=== PATIENT | female | born 2000 | race Two or more races ===

== ENCOUNTER 2025-02-18 13:52 | Inpatient (IN) | payer OTHER ==
[~2025-02-18] VITALS: Ht 152.4 cm; Wt 2.3 kg
[2025-02-18] MEDS ORDERED: RINGERS SOLUTION,LACTATED 1,000 ML IV SCH ×2 (14:15→23:30)
[2025-02-18 14:20] VITALS: BP 106/66
[2025-02-18 14:38] LABS: BASO % 0.2 % (0.1-1.2); EOS # 0.08 (0.04-0.54); EOS % 0.8 % (0.7-7.0); LYMPH # 1.62 (1.18-3.74); LYMPH % 16.8 % (19.3-53.1); MEAN PLATELET VOLUME 11.80 fl (9.4-12.4); MONO # 0.53 (0.24-0.82); MONO % 5.5 % (4.7-12.5); NEUT # 7.36 (1.56-6.13); NEUT % 76.1 % (34.0-71.1); RED CELL DISTRIBUTION WIDTH 20.5 % (11.6-14.4)
[2025-02-18] MEDS ORDERED: IRON240 MG PO (14:39)
[2025-02-18] MEDS ORDERED: PRENATABS FA T1 EACH PO (14:40)
[2025-02-18 14:46] LABS: URINE APPEARANCE Cloudy; URINE BILIRRUBIN Negative (NEGATIVE); URINE BLOOD Negative; URINE COLOR Yellow; URINE GLUCOSE Negative (NEGATIVE); URINE KETONE Negative (NEGATIVE); URINE LEUKOCYTE Trace; URINE NITRATE Negative; URINE PROTEIN Trace (NEGATIVE); URINE UROBILINOGEN 0.2 E.U./dl
[2025-02-18 14:48] LABS: URINE BACTERIA 4321.0 uL (0.0-1933); URINE EPITHELIAL CELLS 181.1 uL (0.0-38.8); URINE RBC 5.4 uL (0.0-20.8); URINE WBC 70.2 uL (0.0-23.2)
[2025-02-18 15:11] LABS: INR < 0.93
[2025-02-18 15:15] LABS: URINE CAST 0.43 uL (0.0-1.40)
[2025-02-18 15:17] LABS: URINE MUCUS MODERATE
[2025-02-18 15:18] LABS: TYPE CELLS SQUAMOUS
[2025-02-18 15:21] VITALS: BP 117/78
[2025-02-18 15:47] LABS: ALT/SGPT 17.0 U/L (12-78); AST/SGOT 13.0 U/L (15-37); BILIRUBIN TOTAL 0.33 mg/dL (0.3-1.2); BUN CREA RATIO 11.0 (7.0-25.0); CREATININE SERUM 0.57 mg/dL (0.55-1.02); GFR 129.23; GLOBULINA 3.7 G/DL (2.4-3.5); GLUCOSE FASTING 70.0 mg/dL (65-100); OSMOLALITY SERUM 279.0 MOSM/KG (275-295)
[2025-02-18] MEDS ORDERED: CEFAZOLIN SODIUM 1,000 MG VIAL IV NR (17:45)
[2025-02-18] MEDS ORDERED: CEFAZOLIN SODIUM 1,000 MG VIAL IV SCH (17:45)
[2025-02-18] MEDS ORDERED: OXYTOCIN 10 UNITS/ML VIAL ONE (19:59)
[2025-02-18] MEDS ORDERED: ERYTHROMYCIN BASE OPHT 1GM EACH TUBE OP ONE (19:59)
[2025-02-18] MEDS ORDERED: ONDANSETRON HCL 2 MG/ML VIAL IV PRN (23:30)
[2025-02-18] MEDS ORDERED: OXYTOCIN 1,000 ML IV SCH (23:30)
[2025-02-18] MEDS ORDERED: MORPHINE SULFATE 4 MG/ML CARTRIDGE IV PRN (23:30)
[2025-02-18] MEDS ORDERED: KETOROLAC TROMETHAMINE 30 MG VIAL IV NR (23:30)
[2025-02-19] MEDS ORDERED: KETOROLAC TROMETHAMINE 30 MG VIAL IV SCH
[2025-02-19 01:00] LABS: ALT/SGPT 13.0 U/L (12-78); AST/SGOT 17.0 U/L (15-37); BILIRUBIN TOTAL 0.38 mg/dL (0.3-1.2); BUN CREA RATIO 10.0 (7.0-25.0); GFR 150.33; GLOBULINA 3.0 G/DL (2.4-3.5); GLUCOSE FASTING 95.0 mg/dL (65-100); LDH 383.0 U/L (84-246); OSMOLALITY SERUM 276.0 MOSM/KG (275-295)
[2025-02-19 01:02] LABS: CREATININE SERUM 0.5 mg/dL (0.55-1.02)
[2025-02-19 01:08] VITALS: BP 129/88
[2025-02-19 01:25] LABS: BASO % 0.1 % (0.1-1.2); EOS # 0.03 (0.04-0.54); EOS % 0.3 % (0.7-7.0); LYMPH # 1.24 (1.18-3.74); LYMPH % 10.8 % (19.3-53.1); MEAN PLATELET VOLUME 12.30 fl (9.4-12.4); MONO # 0.42 (0.24-0.82); MONO % 3.6 % (4.7-12.5); NEUT # 9.77 (1.56-6.13); NEUT % 84.9 % (34.0-71.1); RED CELL DISTRIBUTION WIDTH 20.3 % (11.6-14.4)
[2025-02-19 08:00] VITALS: BP 129/86
[2025-02-19] MEDS ORDERED: SIMETHICONE 125 MG CAPSULE PO SCH (09:55)
[2025-02-19] MEDS ORDERED: ACETAMINOPHEN 325 MG TABLET PO SCH (12:00)
[2025-02-19 16:00] VITALS: BP 115/83
[2025-02-19] MEDS ORDERED: DOCUSATE SODIUM 100MG CAP PO SCH (17:00)
[2025-02-19] MEDS ORDERED: PNV,CALCIUM 72/IRON/FOLIC ACID 1 TAB TABLET PO SCH (17:00)
[2025-02-20 00:48] VITALS: BP 116/80
[2025-02-20 09:00] VITALS: BP 116/80
[2025-02-20] MEDS ORDERED: IRON FUM,PS/FOLIC ACID/VITC/B3 1 CAP CAPSULE PO SCH (09:00)
[2025-02-20 18:52] VITALS: BP 122/89
[2025-02-21 00:56] VITALS: BP 118/81
[2025-02-21 08:00] VITALS: BP 123/83
[2025-02-21] MEDS ORDERED: COLACE100 MG PO (15:46)
[2025-02-21] MEDS ORDERED: ACETAMINOPHEN325 M1 PO (15:46)
[2025-02-21] MEDS ORDERED: VITAMIN C500 M6 PO (15:47)
[2025-02-21] MEDS ORDERED: IBUPROFEN400 MG PO (16:14)
== END 2025-02-21 16:41 | disposition home or self-care (01) | DRG 785 ==
LOC: O/R 13:52 → LDR 13:52 → OB/GYN 13:52 → LDR 14:10 → O/R 21:29 → OB/GYN 23:34
PROVIDERS: ADMIT General Practice; ATTEND General Practice
PROC: 0UB70ZZ Excision of Bilateral Fallopian Tubes, Open Approach (ICD-10-PCS; 2025-02-18)
PROC: 4A1HXCZ Monitoring of Products of Conception, Cardiac Rate, External Approach (ICD-10-PCS; 2025-02-18)
PROC: 10D00Z1 Extraction of Products of Conception, Low, Open Approach (ICD-10-PCS; principal; 2025-02-18 21:15)
DX: O13.4 Gestational [pregnancy-induced] hypertension without significant proteinuria, complicating childbirth (principal); O34.211 Maternal care for low transverse scar from previous cesarean delivery; Z3A.37 37 weeks gestation of pregnancy; Z37.0 Single live birth; Z30.2 Encounter for sterilization